=== PATIENT | female | born 1995 | race Caucasian/White ===

== ENCOUNTER 2022-05-20 15:00 | Emergency (ER) | payer BC ==
[~2022-05-20] VITALS: Ht 162.6 cm; Wt 59.0 kg
--- NOTE | 2022-05-20 15:18 | NUR ---
at bedside for evaluation.
[2022-05-20] MEDS ORDERED: ACETAMINOPHEN ES 500 MG TABLET ONE (15:28)
[2022-05-20] MEDS ORDERED: LIDOCAINE 5% PATCH TD ONE ×2 (15:28→15:30)
[2022-05-20] MEDS ORDERED: predniSONE 20 MG TABLET ONE (15:29)
[2022-05-20] MEDS ORDERED: predniSONE 20 MG TABLET PO ONE (15:30)
[2022-05-20] MEDS ORDERED: ACETAMINOPHEN ES 500 MG TABLET PO ONE (15:30)
[2022-05-20 15:34] LABS: *URINE HCG, QUAL NEGATIVE (NEGATIVE)
[2022-05-20] MEDS ORDERED: PRED20TA PO (15:59)
[2022-05-20] MEDS ORDERED: METH-807 PO (15:59)
--- NOTE | 2022-05-20 16:31 | NUR ---
DISCHARGE INSTRUCTIONS GIVEN BY
[2022-05-20 16:32] VITALS: BP 109/67
== END 2022-05-20 16:32 | disposition home or self-care (01) ==
LOC: ER 15:05
DX: M25.511 Pain in right shoulder (principal); M54.2 Cervicalgia; M54.12 Radiculopathy, cervical region; Z98.1 Arthrodesis status
CPT/HCPCS: 99284; 84703; J7512; A4663; A9150